=== PATIENT | male | born 1990 | race American Indian/Alaskan Native ===

== ENCOUNTER 2020-05-18 00:10 | Emergency (ER) | payer OTHER ==
[2020-05-18] MEDS ORDERED: HYDROmorphone 2 MG/ML Syringe IVPUSH ONE (01:24)
[2020-05-18] MEDS ORDERED: Ketorolac 15 MG/ML SDV IVPUSH ONE (01:24)
--- NOTE | 2020-05-18 01:46 | EDM.PDOC ---
ED [facility] GENERAL MEDICAL PROBLEM - General Chief Complaint: Abdominal Pain Stated Complaint: STOMACH PAIN Time Seen by Provider: 05/18/20 00:48 - History of Present Illness INITIAL COMMENTS - FREE TEXT/NARRATIVE: HISTORY AND PHYSICAL: History of present illness: 37-year-old male who presents emergency department with right upper quadrant pain that first began around 3:45 in the morning and woke him up, went away, and then returned about 2 hours after eating [employer], hamburger/cheeseburger fries and drink, and then he began to have severe abdominal pain. This right upper quadrant pain had a constant pain that came and goes and now has resolved. He also states last week he had a heavy episode of binge drinking with a significant amount of hard alcohol and beer. Since then he has had a mild amount of epigastric pain. No nausea or vomiting. No hematemesis. No hematochezia. No other associated signs or symptoms. No other modifying, aggravating or alleviating factors. Review of systems: A 10-point review of systems, other than pertinent positives and negatives as stated per HPI, is otherwise negative. Past medical history: As per history of present illness and as reviewed below otherwise noncontributory. Surgical history: As per history of present illness and as reviewed below otherwise noncontributory. Social history: No reported history of drug or alcohol abuse. Family history: As per history of present illness and as reviewed below otherwise noncontributory. Physical exam: VITAL SIGNS: Reviewed. GENERAL: Currently not in pain but is concerned about his condition. HEAD: No signs of head trauma. EYES: Pupils are equal. Extraocular motions intact. EARS: Hearing grossly intact. MOUTH: Oropharynx is normal. NECK: No adenopathy, no JVD. CHEST: Chest with clear breath sounds bilaterally. No wheezes, rales, or rhonchi. CARDIAC: Regular rate and rhythm. Normal S1 and S2, without murmurs, gallops, or rubs. VASCULAR: Peripheral pulses normal and equal in all extremities. ABDOMEN: Soft, mild right upper quadrant and epigastric pain. No rebound or guarding. No CVA tenderness. No pulsatile masses. MUSCULOSKELETAL: Good range of motion of all major joints. Extremities without clubbing, cyanosis or edema. NEUROLOGIC EXAM: Alert and oriented x 3. No focal sensory or motor deficits. Speech normal. Follows commands. PSYCHIATRIC: Mood normal. SKIN: No rash or lesions. Initial Differential Diagnosis & Plan: Cholecystitis, symptomatic cholelithiasis, choledocholithiasis, pancreatitis, gastroenteritis, atypical presentation of ACS, atypical presentation of pulmonary embolism. The patient is not tachycardic. He is not tachypneic. He has no unilateral leg swelling or tenderness. There is no pleuritic type pain. He has no urinary symptoms. He does not have chest pain or worsening with exertion. I suspect this is most likely biliary or potentially even renal. I will obtain a CT without IV contrast, right upper quadrant ultrasound, labs, and reevaluate. Definitive disposition and diagnosis as appropriate pending reevaluation and review of above. RUQ Pain Score (Numeric/FACES): 10 - Related Data Allergies Allergy/AdvReac Type Severity Reaction Status Date / Time No Known Allergies Allergy Verified 05/18/20 01:02 Home Meds: Home Meds Pantoprazole Sodium [Protonix] 20 mg PO DAILY #20 tablet. 05/18/20 [Rx] Past Medical History - Past Health History Medical/Surgical History: Denies Medical/Surgical History Psychiatric History: Reports: Anxiety Social & Family History - Tobacco Use Tobacco Use Status *Q: Never Tobacco User Second Hand Smoke Exposure: Yes - Recreational Drug Use Recreational Drug Use: No ED ROS GENERAL - Review of Systems Review Of Systems: See Below (noted) ED EXAM, GI/ABD - Physical Exam Exam: See Below (noted) ED ABDOMINAL/GI PROCEDURES - Ultrasound Ultrasound: Normal Progress: Procedure: Limited Abdominal Ultrasound - Right Upper Quadrant Performed and interpreted by me; images recorded and archived Indication: Right upper quadrant/epigastric pain/flank pain Findings: -No gallstones -No pericholecystic fluid -Normal gallbladder wall thickness -Common Bile duct not visualized Interpretation: Normal right upper quadrant ultrasound No evidence of gallstones No evidence of cholecystitis Signed by Toy Echeverria M.D. Course - Vital Signs Last Recorded V/S: Last Vital Signs Temp 96.3 F L 05/18/20 01:03 Pulse 76 05/18/20 02:58 Resp 14 05/18/20 02:58 BP 146/83 H 05/18/20 02:58 Pulse Ox 97 05/18/20 02:58 - Orders/Labs/Meds Orders: Active Orders 24 hr Category Date Time Status UA RFX ROME AND CULT IF INDIC [URIN] Stat Lab 05/18/20 01:23 Ordered Labs: Laboratory Tests 05/18/20 05/18/20 Range/Units 01:15 01:15 WBC 12.01 H (4.0-11.0) K/uL RBC 6.27 H (4.50-5.90) M/uL Hgb 18.4 H (13.0-17.0) g/dL Hct 56.7 H (38.0-50.0) % MCV 90.4 (80.0-98.0) fL MCH 29.3 (27.0-32.0) pg MCHC 32.5 (31.0-37.0) g/dL RDW Std Deviation 44.3 (28.0-62.0) fl RDW Coeff of Micki 13 (11.0-15.0) % Plt Count 268 (150-400) K/uL MPV 10.80 (7.40-12.00) fL Neut % (Auto) 63.6 (48.0-80.0) % Lymph % (Auto) 26.8 (16.0-40.0) % [place] % (Auto) 7.7 (0.0-15.0) % Eos % (Auto) 1.7 (0.0-7.0) % Baso % (Auto) 0.2 (0.0-1.5) % Neut # (Auto) 7.6 H (1.4-5.7) K/uL Lymph # (Auto) 3.2 H (0.6-2.4) K/uL [place] # (Auto) 0.9 H (0.0-0.8) K/uL Eos # (Auto) 0.2 (0.0-0.7) K/uL Baso # (Auto) 0.0 (0.0-0.1) K/uL Nucleated RBC % 0.0 /100WBC Nucleated RBCs # 0 K/uL Sodium 140 (136-148) mmol/L Potassium 3.8 (3.5-5.1) mmol/L Chloride 105 (98-107) mmol/L Carbon Dioxide 25.4 (21.0-32.0) mmol/L BUN 17 (7.0-18.0) mg/dL Creatinine 1.1 (0.8-1.3) mg/dL Est Cr Clr Drug Dosing 98.19 mL/min Estimated GFR (MDRD) > 60.0 ml/min Glucose 121 H (74-106) mg/dL Calcium 8.9 (8.5-10.1) mg/dL Total Bilirubin 1.3 H (0.2-1.0) mg/dL AST 77 H (15-37) IU/L ALT 273 H (14-63) IU/L Alkaline Phosphatase 120 H (46-116) U/L Total Protein 7.9 (6.4-8.2) g/dL Albumin 4.3 (3.4-5.0) g/dL Globulin 3.6 (2.6-4.0) g/dL Albumin/Globulin Ratio 1.2 (0.9-1.6) Lipase 116 (73-393) U/L Meds: Medications Discontinued Medications Generic Name Dose Route Start Last Admin Trade Name Freq PRN Reason Stop Dose Admin Hydromorphone HCl 1 mg 05/18/20 01:24 05/18/20 02:12 Dilaudid IVPUSH 05/18/20 01:25 1 mg ONETIME ONE Administration Ketorolac Tromethamine 15 mg 05/18/20 01:24 05/18/20 02:11 Toradol IVPUSH 05/18/20 01:25 15 mg ONETIME ONE Administration - Re-Assessments/Exams Free Text/Narrative Re-Assessment/Exam: 05/18/20 03:39 CT and ultrasound are essentially normal. There is fatty liver disease. There is evidence of pancreatitis. I will start the patient on PPI. Follow-up with primary care doctor. Encourage dietary changes. Return as needed. My diagnostic impression: 1. Epigastric pain 2. Gastritis Departure - Departure Time of Disposition: 03:40 Disposition: Home, Self-Care 01 Clinical Impression: Gastritis, Fatty liver - Discharge Information *PRESCRIPTION DRUG MONITORING PROGRAM REVIEWED*: Not Applicable *COPY OF PRESCRIPTION DRUG MONITORING REPORT IN PATIENT RUBEN: Not Applicable Instructions: Gastritis, Adult, [id number], Fatty Liver Disease Referrals: PCP,None [Primary Care Provider] - Forms: ED Department Discharge Additional Instructions: The following information is given to patients seen in the emergency department who are being discharged to home. This information is to outline your options for follow-up care. We provide all patients seen in our emergency department with a follow-up referral. The need for follow-up, as well as the timing and circumstances, are variable depending upon the specifics of your emergency department visit. If you don't have a primary care physician on staff, we will provide you with a referral. We always advise you to contact your personal physician following an emergency department visit to inform them of the circumstance of the visit and for follow-up with them and/or the need for any referrals to a consulting specialist. The emergency department will also refer you to a specialist when appropriate. This referral assures that you have the opportunity for follow-up care with a specialist. All of these measure are taken in an effort to provide you with optimal care, which includes your follow-up. Thank you for coming to the [facility] urgency department for your care today. It was Dr. Echeverria's pleasure to take care of you. [facility] - Primary Care [address] [place] [address] [place] [address] Your work-up today shows no evidence of gallstones. Your CT scan shows no evidence of kidney stones or other pathology to cause your pain. We will start you on a proton pump inhibitor (Protonix, omeprazole, or similar medicine) in case this is caused by gastritis. The cause of her pain is not 100% clear. I recommend follow-up with primary care doctor. You should have dietary changes in your life because you have fatty liver disease. This can progress to liver failure. Also please avoid binge drinking as this can cause other conditions like fatty liver disease caused by alcohol, pancreatitis, and other side effects. Return to emergency department for worsening pain, fever, or any other concerns. We are always happy to see you. Under all circumstances we always encourage you to contact your private physician who remains a resource for coordinating your care. When calling for follow-up care, please make the office aware that this follow-up is from your recent emergency room visit. If for any reason you are refused follow-up, please contact the [facility] Emergency Department at and asked to speak to the emergency department charge nurse. Sepsis Event Note (ED) - Evaluation Sepsis Screening Result: No Definite Risk - Focused Exam Vital Signs: Vital Signs Temp Pulse Resp BP Pulse Ox 05/18/20 02:58 76 14 146/83 H 97 05/18/20 01:08 98 141/83 H 94 L 05/18/20 01:03 96.3 F L 90 16 162/103 H 93 L - My Orders Last 24 Hours: My Active Orders 05/18/20 01:23 UA RFX ROME AND CULT IF INDIC [URIN] Stat - Assessment/Plan Last 24 Hours: My Active Orders 05/18/20 01:23 UA RFX ROME AND CULT IF INDIC [URIN] Stat
[2020-05-18 01:54] LABS: BLOOD UREA NITROGEN,BUN 17 mg/dL (7.0-18.0); CARBON DIOXIDE,CO2 25.4 mmol/L (21.0-32.0); CHLORIDE,CL 105 mmol/L (98-107); GLUCOSE RANDOM 121 mg/dL (74-106); LIPASE 116 U/L (73-393); POTASSIUM,K 3.8 mmol/L (3.5-5.1); SODIUM,NA 140 mmol/L (136-148)
--- NOTE | 2020-05-18 02:40 | CT ---
INDICATION: Quadrant pain COMPARISON: None available TECHNIQUE: CT examination of the abdomen and pelvis was performed without contrast enhancement using 3 mm thick axial sections from the lung bases through the pubic symphysis. Oral contrast was not administered. Please note that all CT scans at this facility use dose modulation, iterative reconstruction, and/or weight-based dosing when appropriate to reduce radiation dose to as low as reasonably achievable. FINDINGS: In the abdomen, the liver is slightly low in density, representing mild fatty infiltration. There is no sign of mass. The spleen, pancreas and adrenals are normal in appearance. The unenhanced kidneys are normal in appearance. The gallbladder is collapsed and is otherwise normal in appearance. The abdominal aorta is normal in caliber with no sign of dilatation. There is no sign of retroperitoneal mass or adenopathy. The stomach, loops of small bowel, and colon in the abdomen are normal in appearance. In the pelvis, the appendix is normal in appearance with no sign of inflammatory process. The loops of small bowel and colon in the pelvis are normal in appearance. The prostate is normal in appearance. The urinary bladder is normal in appearance. There is no sign of pelvic or inguinal mass or adenopathy. There is no sign of free air or free fluid in the abdomen or pelvis. The lung bases are clear. The osseous structures are normal in appearance for the patient`s age. IMPRESSION: Nothing seen to correlate with history of right upper quadrant pain. The gallbladder is collapsed and is otherwise normal in appearance. Normal appearance of the right urinary system. CT of the abdomen shows mild fatty infiltration of the liver. Normal CT of the pelvis without contrast. Please note that all CT scans at this facility use dose modulation, iterative reconstruction, and/or weight-based dosing when appropriate to reduce radiation dose to as low as reasonably achievable. Dictated by Raghu Meyer MD @ May 18 2020 2:34AM Signed by Dr. Raghu Meyer @ May 18 2020 2:38AM
--- NOTE | 2020-05-18 03:19 | US ---
INDICATION: Right upper quadrant pain COMPARISON: CT of the abdomen and pelvis from earlier today TECHNIQUE: Ultrasound examination of the right upper quadrant was performed. FINDINGS: There is normal appearance of the gallbladder, with no sign of cholelithiasis or acute cholecystitis. There is no sign of gallbladder wall thickening or pericholecystic fluid. A sonographic Whitney sign is not present. The common bile duct is normal in caliber at 2 mm. The pancreatic head and body were examined, and these are normal in appearance. The abdominal aorta and visualized portions of the inferior vena cava are normal in appearance. The liver shows no sign of mass or contour abnormality, and there is no sign of ascites. There is diffusely increased hepatic echogenicity consistent with fatty infiltration. The right kidney is unremarkable. IMPRESSION: Normal ultrasound examination of the gallbladder and biliary system. Fatty infiltration of the liver, consistent with today`s CT. Dictated by Raghu Meyer MD @ May 18 2020 3:16AM Signed by Dr. Raghu Meyer @ May 18 2020 3:18AM
== END 2020-05-18 03:50 | disposition home or self-care (01) ==
LOC: MW.ED 00:10
DX: K29.70 Gastritis, unspecified, without bleeding (principal); K76.0 Fatty (change of) liver, not elsewhere classified; Z77.22 Contact with and (suspected) exposure to environmental tobacco smoke (acute) (chronic)
CPT/HCPCS: 36415; 74176; 76705; 80053; 83690; 85025; 96374; 96375; 99284; J1170; J1885

== ENCOUNTER 2022-03-25 02:41 | Emergency (ER) | payer OTHER | END 2022-03-25 05:10 | disposition home or self-care (01) | LOC: MW.ED 02:41 | DX: S06.0X9A Concussion with loss of consciousness of unspecified duration, initial encounter (principal); S01.01XA Laceration without foreign body of scalp, initial encounter; F10.129 Alcohol abuse with intoxication, unspecified; W19.XXXA Unspecified fall, initial encounter | CPT/HCPCS: 12002; 70450; 70450-26; 72125; 72125-26; 99283; 99284 ==

== ENCOUNTER 2022-07-24 17:20 | Emergency (ER) | payer MEDICAID ==
[2022-07-24 19:58] LABS: ACETAMINOPHEN <2.0 ug/mL; BLOOD UREA NITROGEN,BUN 13 mg/dL (7.0-18.0); CARBON DIOXIDE,CO2 25.5 mmol/L (21.0-32.0); CHLORIDE,CL 108 mmol/L (98-107); GLUCOSE RANDOM 102 mg/dL (74-106); POTASSIUM,K 3.6 mmol/L (3.5-5.1); SODIUM,NA 142 mmol/L (136-148)
[2022-07-24 20:06] LABS: ESTIMATED GFR 103 mL/min (>60)
== END 2022-07-24 22:39 | disposition home or self-care (01) ==
LOC: MW.ED 17:20
DX: T40.2X2A Poisoning by other opioids, intentional self-harm, initial encounter (principal); X78.9XXA Intentional self-harm by unspecified sharp object, initial encounter
CPT/HCPCS: 36415; 80053; 80143; 80179; 80305-QW; 80307; 81001; 83735; 85025; 93005; 99285

== ENCOUNTER 2022-08-31 15:10 | Emergency (ER) | payer MEDICAID ==
[2022-08-31 16:36] LABS: ACETAMINOPHEN 28.7 ug/mL; BLOOD UREA NITROGEN,BUN 15 mg/dL (7.0-18.0); CARBON DIOXIDE,CO2 27.5 mmol/L (21.0-32.0); CHLORIDE,CL 106 mmol/L (98-107); CORONAVIRUS COVID-19 NAA POSITIVE (NEGATIVE); GLUCOSE RANDOM 103 mg/dL (74-106); INFLUENZA A NAA NEGATIVE (NEGATIVE); INFLUENZA B NAA NEGATIVE (NEGATIVE); POTASSIUM,K 3.7 mmol/L (3.5-5.1); RESPIRATORY SYNCYTIAL VIR NAA NEGATIVE (NEGATIVE); SODIUM,NA 143 mmol/L (136-148)
[2022-08-31 16:40] LABS: ESTIMATED GFR 116 mL/min (>60)
[2022-08-31] MEDS ORDERED: Magnesium Sulfate/Water 2 GM in Premix Bag 1 BAG IV STA (17:02)
[2022-08-31 18:38] LABS: ACETAMINOPHEN 9.8 ug/mL
== END 2022-08-31 21:08 ==
LOC: MW.ED 15:10
DX: T39.012A Poisoning by aspirin, intentional self-harm, initial encounter (principal); U07.1 COVID-19; F15.10 Other stimulant abuse, uncomplicated; E83.42 Hypomagnesemia
CPT/HCPCS: 0241U; 36415; 80053; 80143; 80179; 80305; 80307; 81001; 83735; 84439; 84443; 84481; 85025; 93005; 96365; 96366; 99285; J3475

== ENCOUNTER 2022-12-29 00:59 | Emergency (ER) | payer MEDICAID ==
[2022-12-29] MEDS ORDERED: Sodium Chloride 0.9% 1,000 ML IV ONE (01:00)
[2022-12-29 01:22] LABS: BASOPHILS PERCENT AUTO 0.3 % (0.0-1.5); EOSINOPHILS ABSOLUTE AUTO 0.1 K/uL (0.0-0.7); EOSINOPHILS PERCENT AUTO 1.3 % (0.0-7.0); HEMATOCRIT 48.1 % (38.0-50.0); HEMOGLOBIN 16.4 g/dL (13.0-17.0); LYMPHOCYTES ABSOLUTE AUTO 2.8 K/uL (0.6-2.4); LYMPHOCYTES PERCENT AUTO 29.2 % (16.0-40.0); MEAN CORPUSCULAR HEMOGLOBIN 29.5 pg (27.0-32.0); MEAN CORPUSCULAR HGB CONC 34.1 g/dL (31.0-37.0); MEAN CORPUSCULAR VOLUME 86.7 fL (80.0-98.0); MONOCYTES ABSOLUTE AUTO 0.6 K/uL (0.0-0.8); MONOCYTES PERCENT AUTO 5.8 % (0.0-15.0); NEUTROPHILS ABSOLUTE AUTO 6.1 K/uL (1.4-5.7); NEUTROPHILS PERCENT AUTO 63.4 % (48.0-80.0); NRBC ABSOLUTE 0 K/uL; PLATELET COUNT,PLT 264 K/uL (150-400); RED BLOOD CELL COUNT 5.55 M/uL (4.50-5.90); WHITE BLOOD CELL COUNT,WBC 9.68 K/uL (4.0-11.0)
[2022-12-29 01:44] LABS: A/G RATIO 1.1 (0.9-1.6); ACETAMINOPHEN <2.0 ug/mL; ALANINE AMINOTRANSFERASE,ALT 132 IU/L (14-63); ALKALINE PHOSPHATASE 94 U/L (46-116); ASPARTATE AMNIOTRANSFERASE,AST 43 IU/L (15-37); BILIRUBIN TOTAL 1.3 mg/dL (0.2-1.0); BLOOD UREA NITROGEN,BUN 19 mg/dL (7.0-18.0); CALCIUM 9.2 mg/dL (8.5-10.1); CARBON DIOXIDE,CO2 21.4 mmol/L (21.0-32.0); CHLORIDE,CL 103 mmol/L (98-107); EST CRCL DRUG DOSING (CG) 108.49 mL/min; ESTIMATED GFR 102 mL/min (>60); ETHANOL BLOOD MEDICAL < 3.0 mg/dL; GLUCOSE RANDOM 205 mg/dL (74-106); MAGNESIUM 1.8 mg/dL (1.8-2.4); PROTEIN TOTAL,TP 7.6 g/dL (6.4-8.2); SALICYLATE <0.2 mg/dL (0.0-20.0); SODIUM,NA 140 mmol/L (136-148)
[2022-12-29 01:47] LABS: LACTIC ACID 1.9 mmol/L (0.4-2.0)
[2022-12-29] MEDS ORDERED: Potassium Chloride 20 MEQ Tab.ER PO ONE (02:14)
[2022-12-29 02:36] LABS: APPEARANCE,URINE CLEAR; BILIRUBIN,URINE NEGATIVE (NEGATIVE); COLOR,URINE YELLOW; GLUCOSE,URINE NEGATIVE (NEGATIVE); KETONES,URINE TRACE mg/dL (NEGATIVE); LEUKOCYTE ESTERASE,URINE NEGATIVE (NEGATIVE); NITRITE,URINE NEGATIVE (NEGATIVE); OCCULT BLOOD,URINE NEGATIVE (NEGATIVE); PROTEIN,URINE NEGATIVE (NEGATIVE); UROBILINOGEN,URINE 0.2 EU/dL (<2.0)
[2022-12-29 02:45] LABS: AMPHETAMINES SCREEN, URINE NEGATIVE (CUTOFF=500); BARBITURATE SCREEN,URINE NEGATIVE (CUTOFF=200); BENZODIAZEPINES SCREEN,URINE NEGATIVE (CUTOFF=150); BUPRENORPHINE SCREEN,URINE NEGATIVE (CUTOFF=10); METHADONE SCREEN, URINE NEGATIVE (CUTOFF=200); METHAMPHETAMINES SCREEN, URINE NEGATIVE (CUTOFF=500); OXYCODONE SCREEN,URINE NEGATIVE (CUT0FF=100); PCP SCREEN,URINE NEGATIVE (CUTOFF=25); PROPOXYPHENE SCREEN,URINE NEGATIVE (CUTOFF=300); THC SCREEN,URINE 20 NG/ML NEGATIVE (CUTOFF=50)
== END 2022-12-29 03:05 | disposition home or self-care (01) ==
LOC: MW.ED 00:59
DX: G40.909 Epilepsy, unspecified, not intractable, without status epilepticus (principal)
CPT/HCPCS: 36415; 80053; 80143; 80179; 80305; 80307; 81003; 83605; 83735; 84484; 85025; 93005; 96361; 96374; 99284; A9270; J1953; J7030; J7060